=== PATIENT | female | born 1985 | race Two or more races ===

== ENCOUNTER 2023-09-25 15:52 | Emergency (ER) | payer MEDICAID ==
[~2023-09-25] VITALS: Ht 162.6 cm; Wt 81.8 kg
[2023-09-25 16:01] VITALS: TEMP 98.2
[2023-09-25 16:26] VITALS: BP 112/69; PULSE 83; RESP 18
[2023-09-25] MEDS: ACETAMINOPHEN/CODEINE 300-30 MG TABLET PO ONE (17:01)
[2023-09-25] MEDS: KETOROLAC TROMETHAMINE 60 MG/2 ML VIAL IM ONE (17:01)
[2023-09-25] MEDS ORDERED: ACET-2080 PO (17:18)
[2023-09-25] MEDS ORDERED: IBUP-1554 PO (17:18)
== END 2023-09-25 17:33 | disposition home or self-care (01) ==
LOC: EMS 15:52
DX: S93.601A Unspecified sprain of right foot, initial encounter (principal); S93.401A Sprain of unspecified ligament of right ankle, initial encounter; W22.8XXA Striking against or struck by other objects, initial encounter; Y93.89 Activity, other specified; Y92.89 Other specified places as the place of occurrence of the external cause; Y99.8 Other external cause status
CPT/HCPCS: 99284; 73600; 73630; 96372; J1885